=== PATIENT | female | born 1960 | race Caucasian/White ===

== ENCOUNTER 2019-12-21 09:58 | Emergency (ER) | payer BC ==
[~2019-12-21] VITALS: Ht 165.1 cm; Wt 66.0 kg
[2019-12-21] MEDS ORDERED: BACT800T5 PO ×2 (10:06→11:31)
[2019-12-21] MEDS ORDERED: CELE10TA PO (10:06)
[2019-12-21] MEDS ORDERED: BOOSTRIX/ADACEL VACCINE (DIPHTH/PERTUSS/ACELL/TETANUS) 0.5ML SYR IM ONE (10:45)
--- NOTE | 2019-12-21 11:20 | REPVR ---
PROCEDURE INFORMATION: Exam: XR Left Toe(s) Exam date and time: 12/21/2019 10:41 AM Age: 59 years old Clinical indication: Pain; Toes; Left; Additional info: L 1st toe TECHNIQUE: Imaging protocol: XR Left toes. Views: Minimum 2 views. COMPARISON: No relevant prior studies available. FINDINGS: Bones/joints: No acute fracture. No dislocation. Minimal plantar flexion at the 1st interphalangeal joint. Very minimal degenerative change at the 1st metatarsophalangeal joint. Normal bone mineralization. No active erosions or active periostitis. Soft tissues: Probable soft tissue swelling at the tip of the 2nd toe and at the mid to distal 1st toe. IMPRESSION: 1. No acute osseous abnormality. 2. Probable soft tissue swelling at the tip of the 2nd toe and at the mid to distal 1st toe. Electronically signed by: Destiny Jordan On 12/21/2019 11:20:04 AM
[2019-12-21 11:39] VITALS: BP 108/63
== END 2019-12-21 11:44 | disposition home or self-care (01) ==
LOC: M ED 09:58
DX: L03.032 Cellulitis of left toe (principal); S90.112A Contusion of left great toe without damage to nail, initial encounter; W22.09XA Striking against other stationary object, initial encounter; Y92.9 Unspecified place or not applicable; F33.9 Major depressive disorder, recurrent, unspecified; Z88.1 Allergy status to other antibiotic agents; Z79.899 Other long term (current) drug therapy

== ENCOUNTER → 2019-12-23 | Outpatient (REF) | payer BC ==
[~2019-12-23] MED LIST: BACT800T5 PO; CELE10TA PO
== END ==
LOC: M LAB REF 17:38
PROVIDERS: ATTEND Podiatrist Foot & Ankle Surgery
DX: L03.031 Cellulitis of right toe (principal)